=== PATIENT | female | born 1990 | race African-American/Black ===

== ENCOUNTER 2018-01-11 11:16 | Emergency (ER) | payer MEDICAID ==
[~2018-01-11] VITALS: Ht 167.6 cm; Wt 68.0 kg
[2018-01-11 11:19] VITALS: BP 157/96
== END 2018-01-11 12:07 | disposition home or self-care (01) ==
LOC: ER 11:17
DX: J20.9 Acute bronchitis, unspecified (principal); M94.0 Chondrocostal junction syndrome [Tietze]; N64.52 Nipple discharge; F17.200 Nicotine dependence, unspecified, uncomplicated
CPT/HCPCS: A4606; Z7610

== ENCOUNTER 2023-01-11 09:29 | Emergency (ER) | payer MEDICAID ==
[~2023-01-11] VITALS: Ht 167.6 cm; Wt 59.0 kg
--- NOTE | 2023-01-11 09:55 | NUR ---
RECEIVED PT 32 YRS MALE waling in c/o pain on left knee no diffarmity no hx trama no sruthien
[2023-01-11] MEDS ORDERED: IBUPROFEN 600 MG TABLET PO ONE (10:00)
--- NOTE | 2023-01-11 10:08 | NUR ---
x ray done at bed side
[2023-01-11] MEDS ORDERED: IBUPROFEN 600 MG TABLET ONE (10:12)
[2023-01-11] MEDS ORDERED: IBUP-1955 PO (11:11)
[2023-01-11 11:21] VITALS: BP 121/76
--- NOTE | 2023-01-11 11:23 | NUR ---
Patient discharged to home in stable condition. Written and verbal after care instructions given. Patient verbalizes understanding of instruction.
== END 2023-01-11 11:23 | disposition home or self-care (01) ==
LOC: ER 09:33
DX: S83.92XA Sprain of unspecified site of left knee, initial encounter (principal); F17.200 Nicotine dependence, unspecified, uncomplicated; X50.1XXA Overexertion from prolonged static or awkward postures, initial encounter; Y93.89 Activity, other specified; Y92.89 Other specified places as the place of occurrence of the external cause; Y99.8 Other external cause status
CPT/HCPCS: 73564-TC

== ENCOUNTER 2025-05-19 12:43 | Emergency (ER) | payer MEDICAID ==
[~2025-05-19] VITALS: Ht 165.1 cm; Wt 68.0 kg
[~2025-05-19 12:43] MED LIST: IBUP-1955 PO
[2025-05-19 12:54] VITALS: BP 134/92; TEMP 98.4
[2025-05-19] MEDS ORDERED: IBUPROFEN 600 MG TABLET ONE (13:59)
[2025-05-19] MEDS: IBUPROFEN 600 MG TABLET PO ONE (14:02)
[2025-05-19] MEDS ORDERED: IBUP-1953 PO (14:30)
[2025-05-19 14:38] VITALS: O2SAT 99
== END 2025-05-19 14:39 | disposition home or self-care (01) ==
LOC: ER 12:58
DX: M25.531 Pain in right wrist (principal); F17.200 Nicotine dependence, unspecified, uncomplicated; Z88.0 Allergy status to penicillin; Z79.899 Other long term (current) drug therapy; V43.52XA Car driver injured in collision with other type car in traffic accident, initial encounter; Y93.89 Activity, other specified; Y92.415 Exit ramp or entrance ramp of street or highway as the place of occurrence of the external cause; Y99.8 Other external cause status
CPT/HCPCS: 73090-TC